=== PATIENT | female | born 1990 | race American Indian/Alaskan Native ===

== ENCOUNTER 2017-08-15 16:07 | Emergency (ER) | payer MEDICAID ==
[2017-08-15 16:54] LABS: Urine Drugs of Abuse Note Disclamer
[2017-08-15 17:03] LABS: Basophils % (Auto) 0.3 % (0.0-1.8); Eosinophils % (Auto) 0.1 % (0.0-4.3); Hematocrit 36.7 % (30.3-42.9); Hemoglobin 12.3 gm/dl (10.1-14.3); Mean Corpuscular HGB Conc 34 % (30-34); Mean Corpuscular Volume 74 fl (79-97); Red Blood Count 4.97 M/mm3 (3.65-5.03); Red Cell Distribution Width 15.5 % (13.2-15.2); White Blood Count 8.9 K/mm3 (4.5-11.0)
[2017-08-15 17:06] LABS: Bilirubin,Urine NEG (Negative); Blood,Urine LG (Negative); Ketones,Urine NEG (Negative); Leukocyte Esterase,Urine NEG (Negative); Mucus,Urine FEW /HPF; Nitrite,Urine NEG (Negative); Urobilinogen,Urine < 2.0 mg/dL (<2.0)
[2017-08-15 17:18] LABS: Anion Gap 19 mmol/L; Blood Urea Nitrogen 9 mg/dL (7-17); Calcium 9.2 mg/dL (8.4-10.2); Carbon Dioxide 21 mmol/L (22-30); Chloride 98.8 mmol/L (98-107); Glucose 246 mg/dL (65-100); Potassium 3.9 mmol/L (3.6-5.0); Sodium 135 mmol/L (137-145)
[2017-08-15 17:19] LABS: Mean Corpuscular Hemoglobin 25 pg (28-32)
[2017-08-15 17:49] LABS: Platelet Count 79 K/mm3 (140-440)
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
[2017-08-15 17:59] VITALS: BP 119/78
== END 2017-08-15 19:00 | disposition home or self-care (01) ==
LOC: EEVIPCON 16:07 → ED 16:07
DX: F43.9 Reaction to severe stress, unspecified (principal); R46.89 Other symptoms and signs involving appearance and behavior; F31.9 Bipolar disorder, unspecified
CPT/HCPCS: 36415; 80048; 80307; 81001; 81025; 85025; 99283; G0480; 80320

== ENCOUNTER 2018-07-09 08:39 | Emergency (ER) | payer MEDICAID | END 2018-07-09 08:40 | disposition left against medical advice (07) | LOC: ED 08:39 | DX: Z00.8 Encounter for other general examination (principal); Z53.21 Procedure and treatment not carried out due to patient leaving prior to being seen by health care provider ==

== ENCOUNTER 2020-07-19 07:52 | Emergency (ER) | payer MEDICAID | END 2020-07-19 08:09 | disposition left against medical advice (07) | LOC: ED 07:52 | DX: E11.9 Type 2 diabetes mellitus without complications (principal); Z53.21 Procedure and treatment not carried out due to patient leaving prior to being seen by health care provider ==

== ENCOUNTER 2020-08-17 08:35 | Emergency (ER) | payer MEDICAID ==
[2020-08-17 08:42] VITALS: BP 111/72
--- NOTE | 2020-08-17 09:52 | Emergency Department Report ---
ED General Adult HPI - General Chief complaint: Weakness Stated complaint: DIZZY/V PUI?: No Time Seen by Provider: 08/17/20 09:47 Source: patient Mode of arrival: Ambulatory Limitations: No Limitations - History of Present Illness Initial comments: 30-year-old -[place] female presents to the emergency room complaining of a sore throat and feeling sick at work. Patient states that she was at work and had vomited and got dizzy and was told to go home and return with a doctor's excuse. Patient reports she has a history of diabetes sickle cell disease. Patient denies any fever chills no chest pain shortness of breath she does admit to a light cough and a sore throat. Patient states she is able to drink fluids. She has no dizziness at this time. Patient states that at work they were working her heart and she was moving fast to get her job done. Patient does have a history of developmental delay functions at a level 10-year-old. History of bipolar autism type 2 diabetes. Mother does endorse that she ate 2 boxes a raises last night and did have episode of diarrhea. -: This morning Improves with: other (vomiting) Associated Symptoms: cough (slight), nausea/vomiting (resoved). denies: confusion, chest pain, fever/chills, headaches, loss of appetite, rash Treatments Prior to Arrival: none - Related Data Home Medications Medication Instructions Recorded Confirmed Last Taken Escitalopram [Lexapro] 10 mg PO DAILY 07/31/14 08/06/15 07/31/14 Methylphenidate HCl [Concerta] 54 mg PO QAM 07/31/14 08/06/15 Unknown QUEtiapine [SEROquel] 25 mg PO BID 07/31/14 08/06/15 Unknown cloNIDine [Catapres] 0.1 mg PO QHS 07/31/14 08/06/15 Unknown Naltrexone (Nf) [Revia (Nf)] 50 mg PO DAILY 08/22/14 08/06/15 Unknown Previous Rx's Medication Instructions Recorded Last Taken Type Amoxicillin [Trimox CAP] 500 mg PO Q8H 7 Days #21 capsule 08/17/20 Unknown Rx Allergies Allergy/AdvReac Type Severity Reaction Status Date / Time No Known Allergies Allergy Unverified 07/31/14 10:13 ED Review of Systems ROS: Stated complaint: DIZZY/V Other details as noted in HPI Comment: All other systems reviewed and negative ED Past Medical Hx - Past Medical History Previous Medical History?: Yes Hx Diabetes: Yes (Type II) Hx Sickle Cell Disease: Yes Hx Psychiatric Treatment: Yes (outpatient, bipolar, autism) Additional medical history: developmental delay- function level 10yo - Social History Smoking Status: Never Smoker Substance Use Type: None - Medications Home Medications: Home Medications Medication Instructions Recorded Confirmed Last Taken Type Escitalopram [Lexapro] 10 mg PO DAILY 07/31/14 08/06/15 07/31/14 History Methylphenidate HCl [Concerta] 54 mg PO QAM 07/31/14 08/06/15 Unknown History QUEtiapine [SEROquel] 25 mg PO BID 07/31/14 08/06/15 Unknown History cloNIDine [Catapres] 0.1 mg PO QHS 07/31/14 08/06/15 Unknown History Naltrexone (Nf) [Revia (Nf)] 50 mg PO DAILY 08/22/14 08/06/15 Unknown History Amoxicillin [Trimox CAP] 500 mg PO Q8H 7 Days #21 capsule 08/17/20 Unknown Rx ED Physical Exam - General Limitations: No Limitations General appearance: alert, in no apparent distress - Head Head exam: Present: atraumatic, normocephalic - Eye Eye exam: Present: normal appearance - Expanded ENT Exam Expanded Mouth exam: Present: normal external inspection Throat exam: Positive: tonsillomegaly. Negative: tonsillar erythema - Neck Neck exam: Present: normal inspection, full ROM - Respiratory Respiratory exam: Present: normal lung sounds bilaterally. Absent: respiratory distress - Cardiovascular Cardiovascular Exam: Present: regular rate, normal rhythm. Absent: systolic murmur, diastolic murmur, rubs, gallop - GI/Abdominal GI/Abdominal exam: Present: soft - Extremities Exam Extremities exam: Present: normal inspection, full ROM - Expanded Neurological Exam Expanded Patient oriented to: Present: person, place, time Cranial nerves: EOM's Intact: Normal, Gag Reflex: Normal, Tongue Deviation: Normal, Nystagmus: Normal, Facial Sensation: Normal, Facial Palsy with Forehead Movement: Normal, Facial Palsy without Forehead Movement: Normal Cerebellar function: Finger to Nose: Normal, Heel to Davis: Normal, Romberg: Normal Upper motor neuron: Jasmeet Neglect: Normal, Pronator Drift: Normal, Babinski Sign: Normal, Sensory Extinction: Normal Sensory exam: Upper Extremity Light Touch: Normal, Upper Extremity Pin Prick: Normal, Upper Extremity Temperature: Normal, UE 2 Point Discrimination: Normal, Lower Extremity Light Touch: Normal, Lower Extremity Pin Prick: Normal, Lower Extremity Temperature: Normal, LE 2 Point Discrimination: Normal Motor strength exam: RUE: 5, LUE: 5, RLE: 5, LLE: 5 Best Eye Response ([place]): (4) open spontaneously Best Motor Response ([place]): (6) obeys commands Best Verbal Response ([place]): (5) oriented Raymundo Total: 15 - Psychiatric Psychiatric exam: Present: normal affect, normal mood - Skin Skin exam: Present: warm, dry, intact, normal color. Absent: rash ED Course Vital Signs 08/17/20 08:41 Temperature 98.9 F Pulse Rate 78 Respiratory 16 Rate Blood Pressure 111/72 O2 Sat by Pulse 99 Oximetry Critical care attestation.: If time is entered above; I have spent that time in minutes in the direct care of this critically ill patient, excluding procedure time. ED Disposition Clinical Impression: Sore throat, Pharyngitis Disposition: DC-01 TO HOME OR SELFCARE Is pt being admited?: No Does the pt Need Aspirin: No Condition: Stable Instructions: Pharyngitis (ED) Additional Instructions: Complete antibiotics as prescribed. Increase your water intake advance your diet as tolerated you can take Tylenol or ibuprofen as needed for pain management. Follow-up with Dr. Allen. Prescriptions: Amoxicillin [Trimox CAP] 500 mg PO Q8H 7 Days #21 capsule Referrals: ALLEN SEO MD [Primary Care Provider] - 3-5 Days Forms: Work/School Release Form(ED)
== END 2020-08-17 10:02 | disposition home or self-care (01) ==
LOC: ED 08:35
DX: J02.9 Acute pharyngitis, unspecified (principal); R42 Dizziness and giddiness; R05 Cough; E11.9 Type 2 diabetes mellitus without complications; Z79.2 Long term (current) use of antibiotics; Z79.899 Other long term (current) drug therapy
CPT/HCPCS: 99282

== ENCOUNTER 2021-05-23 16:36 | Emergency (ER) | payer MEDICAID | END 2021-05-23 16:41 | disposition left against medical advice (07) | LOC: ED 16:36 | DX: R07.89 Other chest pain (principal); R51.9 Headache, unspecified; Z53.21 Procedure and treatment not carried out due to patient leaving prior to being seen by health care provider ==